=== PATIENT | female | born 1990 | race Caucasian/White ===

== ENCOUNTER 2024-07-07 07:30 | Outpatient (OUT) | payer BC, SELFPAY | END 2024-07-07 07:31 | disposition home or self-care (01) | LOC: SLEEP 07-08 07:31 | PROVIDERS: PCP Nurse Practitioner; Visit Provider Nurse Practitioner | DX: G47.33 Obstructive sleep apnea (adult) (pediatric) (principal) | CPT/HCPCS: 95806 ==

== ENCOUNTER 2025-05-25 10:51 | Outpatient (OUT) | payer BC, SELFPAY ==
--- NOTE | 2025-05-25 10:58 | US_ITS ---
The [address] [address] Patient Name: SORAIDA MCMAHON MRN: [id number] date: 1990 Sex: F Assigned Patient Location: US Current Patient Location: US Accession/Order Number: [id number] Exam Date: 05/25/2025 10:59 Report Date: 05/25/2025 11:59 At the request of: KENA HOPKINS Procedure: US thyroid THYROID ULTRASOUND COMPARISON: None CLINICAL DATA: Abnormal thyroid labs. The right thyroid lobe measures 4.9 x 1.5 x 1.6 cm. The left lobe measures 5.4 x 1.5 x 1.2 cm. The isthmus measures 3 mm . Thyroid echotexture is mildly heterogeneous. At the mid to lower pole on the right, there is a hypoechoic nodule measuring 8 x 5 x 6 mm (TI-RADS 4). No nodularity is seen on the left. US/US thyroid IMPRESSION: SUBCENTIMETER RIGHT THYROID NODULE. Impression dictated by: Rae Ma M.D. 05/25/2025 11:59 AM Dictation Location: [place] [address] Electronically authenticated by: [id number] Date: 05/25/2025 11:59
== END 2025-05-25 10:52 | disposition home or self-care (01) ==
LOC: US 10:53
PROVIDERS: PCP Nurse Practitioner; Visit Provider Nurse Practitioner
DX: R79.89 Other specified abnormal findings of blood chemistry (principal); D80.3 Selective deficiency of immunoglobulin G [IgG] subclasses; E34.9 Endocrine disorder, unspecified; Z78.9 Other specified health status; Z68.33 Body mass index [BMI] 33.0-33.9, adult; R76.89 Other specified abnormal immunological findings in serum; E04.1 Nontoxic single thyroid nodule
CPT/HCPCS: 76536